=== PATIENT | female | born 1975 | race Caucasian/White ===

== ENCOUNTER 2021-07-19 12:03 | Emergency (ER) | payer BC, OTHER ==
[2021-07-19 12:23] VITALS: O2SAT 100
[2021-07-19] MEDS ORDERED: TYLENOL 325 MG PO ONE (12:36)
[2021-07-19] MEDS ORDERED: TYLENOL 325 MG ONE (12:39)
--- NOTE | 2021-07-19 13:22 | XRAY ---
Indication: Postreduction 4th PIP dislocation. Comparison: None 3 view left hand demonstrates mild 4th PIP soft tissue swelling. Incidental distal 4th/5th finger faint cutaneous radiopacities of uncertain etiology. No other bony, articular, or soft tissue abnormalities.
--- NOTE | 2021-07-19 13:36 | ERPHSYRPT ---
- History of Present Illness Time Seen by Provider: 07/19/21 12:30 Source: patient Exam Limitations: no limitations Patient Subjective Stated Complaint: Pt states "I fell and I broke my finger." Triage Nursing Assessment: Pt presented alert and oriented X 3, skin wpd Pt ambulates with an upright steady gait, able to speak in clear full sentences pt has good distal sensation. pt ring finger on left hand bent at the middle knuckle. Physician History: Patient is a 46-year-old female presents to our ED for evaluation and reduction of a left finger dislocation. 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 Patient's left ring finger PIP joint is ulnar deviated. Patient's wedding ring is intact. The extremity is perfusing well. No other injuries reported. Injury occurred just prior to arrival. Patient states pain is minimal. Symptoms are mild to moderate in intensity. No specific worsening improving factors. Patient otherwise healthy. She voices no other complaints or concerns at this time. Patient fall was not associated with any sort of neuro or cardiovascular symptomology. Occurred: just prior to arrival Method of Injury: fell Quality: constant Severity of Pain-Max: moderate Severity of Pain-Current: mild Extremities Pain Location: 4th finger: left Modifying Factors: Improves With: nothing Associated Symptoms: none Allergies/Adverse Reactions: Penicillins Allergy (Intermediate, Verified 07/19/21 12:24) Rash Home Medications: No Reportable Medications [No Reported Medications] 07/19/21 [History] Hx Tetanus, Diphtheria Vaccination/Date Given: No Hx Influenza Vaccination/Date Given: No Hx Pneumococcal Vaccination/Date Given: No Immunizations Up to Date: Yes Travel Risk - International Travel Have you traveled outside of the country in past 3 weeks: No - Coronavirus Screening Are you exhibiting any of the following symptoms?: No Close contact with a COVID-19 positive Pt in past 14-21 Days: No - Vaccine Status Have you recieved a Covid-19 vaccination: Yes Experimental [employer]: Moderna - Vaccination Dates Date of 2cond Vaccination (if applicable): 02/2021 - Review of Systems Constitutional: No Symptoms, No Fever, No Chills Eyes: No Symptoms Ears, Nose, & Throat: No Symptoms Respiratory: No Symptoms, No Cough, No Dyspnea Cardiac: No Symptoms, No Chest Pain, No Edema, No Syncope Abdominal/Gastrointestinal: No Symptoms, No Abdominal Pain, No Nausea, No Vomiting, No Diarrhea Genitourinary Symptoms: No Symptoms, No Dysuria Musculoskeletal: No Symptoms, No Back Pain, No Neck Pain Skin: No Symptoms, No Rash Neurological: No Symptoms, No Dizziness, No Focal Weakness, No Sensory Changes Psychological: No Symptoms Endocrine: No Symptoms Hematologic/Lymphatic: No Symptoms Immunological/Allergic: No Symptoms All Other Systems: Reviewed and Negative - Past Medical History Pertinent Past Medical History: No - Past Surgical History Past Surgical History: Yes Other Surgical History: hysterectomy - Social History Smoking Status: Never smoker Exposure to second hand smoke: No Drug Use: none Patient Lives Alone: No - Female History Hx Last Menstrual Period: hysterectomy Hx Now: No - Nursing Vital Signs Nursing Vital Signs: Initial Vital Signs Temperature 98.7 F 07/19/21 12:14 Pulse Rate 117 H 07/19/21 12:14 Respiratory Rate 20 07/19/21 12:14 Blood Pressure 175/82 07/19/21 12:14 O2 Sat by Pulse Oximetry 100 07/19/21 12:14 Pain Scale Pain Intensity 2 - Physical Exam General Appearance: no apparent distress, alert Eyes, Ears, Nose, Throat Exam: normal ENT inspection, moist mucous membranes Neck Exam: normal inspection, full range of motion, No limited range of motion Cardiovascular/Respiratory Exam: normal breath sounds, regular rate/rhythm, no respiratory distress, No tachycardia, No accessory muscle use Abdominal Exam: non-tender, No guarding Back Exam: normal inspection, normal range of motion, No vertebral tenderness Shoulder Exam: normal inspection, non-tender, no evidence of injury, normal ROM Elbow/Forearm Exam: normal inspection, non-tender, no evidence of injury, normal ROM Wrist Exam: normal inspection, non-tender, no evidence of injury, normal ROM Hand Exam: normal inspection (Left ring finger at the PIP joint is ulnarly deviated. The distal tip is perfusing normally. Sensation intact.) Neuro/Tendon Exam: normal sensation, normal motor functions, normal tendon functions Mental Status Exam: alert, oriented x 3, cooperative Skin Exam: normal color, warm, dry SpO2 Interpretation: normal SpO2: 100 O2 Delivery: Room Air Procedures - Joint Reduction Time of Procedure: 11:14 Timeout: Performed Joint Reduction Site: Left, 4th digit Conscious Sedation: No Reduction Attempts: 1 Pre-Procedure Neurovascular Exam: neurovascular intact Post Procedure Neurovascular Exam: neurovascular intact Post Joint Reduction Film: joint reduced Progress: Patient neurovascular intact distally post procedure. Patient's left ring was cut off by staff post procedure. - Course Nursing assessment & vital signs reviewed: Yes - Radiology Exams Hand X-ray Interpretation: Teleradiologist Report (Mild fourth digit PIP soft tissue swelling. Incidental distal fourth/fifth finger faint cutaneous radiopacities of uncertain etiology. No other bony articular or soft tissue abnormalities.) Ordered Tests: Active Orders 24 hr Category Date Time Status HAND (MINIMUM 3 VIEWS) Stat Exams 07/19/21 12:35 Completed Medication Summary Discontinued Medications Generic Name Dose Route Start Last Admin Trade Name Frerobina PRN Reason Stop Dose Admin Acetaminophen 975 mg 07/19/21 12:36 07/19/21 12:40 Tylenol 325 Mg PO 07/19/21 12:37 975 mg STAT ONE Administration Acetaminophen Confirm 07/19/21 12:39 Tylenol 325 Mg Administered 07/19/21 12:40 Dose 975 mg .ROUTE .STK-MED ONE - Progress Progress: improved Progress Note: Patient is finger dislocation was successfully reduced. Her ring was cut off. It was provided back to her. X-ray negative for fracture dislocation but in light of the dislocation there was likely a ligamentous injury. Patient's involved finger was splinted and AlumaFoam splint. Patient was given Tylenol for pain control per her request. Patient given referral to orthopedic clinic for further evaluation and treatment. 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 Patient agrees to follow-up as discussed. She voices no other complaints or concerns at this time. Portions of this note were created with voice recognition technology. There may be grammatical, spelling, punctuation or sound alike errors 07/19/21 13:53 07/19/21 13:56 [id number] analgesics as needed. Counseled pt/family regarding: diagnosis, need for follow-up, rad results - Departure Departure Disposition: Home Clinical Impression: Finger dislocation, Fall Condition: Stable Critical Care Time: No Referrals: DOCTOR,NO FAMILY [Primary Care Provider] - Additional Instructions: Discharge/Care Plan JACQUELINE VANN was seen on 07/19/21 in the Emergency Room. The patient was counseled regarding Diagnosis,Lab results, Imaging studies, need for follow up and when to return to the Emergency Room. Prescriptions given: Discharge Note I have spoken with the patient and/or caregivers. I have explained the patient's condition, diagnosis and treatment plan based on the information available to me at this time. I have answered the patient's and/or caregiver's questions and addressed any concerns. The patient and/or caregivers have as good understanding of the patient's diagnosis, condition and treatment plan as can be expected at t his point. The vital signs have been stable. The patient's condition is stable and appropriate for discharge from the emergency department. The patient will pursue further outpatient evaluation with the primary care physician or other designated or consulting physician as outlined in the discharge instructions. The patient and/or caregivers are agreeable to this plan of care and follow-up instructions have been explained in detail. The patient and/or caregivers have received these instruction. The patient/and or caregivers are aware that any significant change in condition or worsening of symptoms should prompt an immediate return to this or the closest emergency department or call 911. Outpatient Orders: Ortho Referral Time Frame: 1 Day, Facility: [facility]. Hosp, Location: [facility]
[2021-07-19 13:37] VITALS: BP 168/70; PULSE 88
== END 2021-07-19 13:46 | disposition home or self-care (01) ==
LOC: ED 12:03
DX: S63.255A Unspecified dislocation of left ring finger, initial encounter (principal); S62.615A Displaced fracture of proximal phalanx of left ring finger, initial encounter for closed fracture; W18.39XA Other fall on same level, initial encounter
CPT/HCPCS: 26770; 73130; 99283; A9270-GY